=== PATIENT | female | born 1940 | race Caucasian/White ===

== ENCOUNTER 2018-01-18 11:03 | Emergency (ER) | payer MEDICARE, BC ==
[~2018-01-18] VITALS: Wt 85.0 kg
[2018-01-18] MEDS ORDERED: ATORVASTATIN CA20 MG PO (11:15)
[2018-01-18] MEDS ORDERED: FUROSEMIDE40 MG PO (11:15)
[2018-01-18] MEDS ORDERED: LISINOPRIL40 MG PO (11:15)
[2018-01-18] MEDS ORDERED: LEVOTHYROXIN0.088 MG PO (11:15)
[2018-01-18] MEDS ORDERED: DITROPAN 5MG TAB5 MG PO (11:16)
[2018-01-18] MEDS ORDERED: LEADER PAIN RE500 M1 PO (11:16)
[2018-01-18] MEDS ORDERED: GOOD NEIGHBOR P20 M1 PO (11:16)
[2018-01-18] MEDS ORDERED: TYLENOL PM EX-1 EACH PO (11:16)
[2018-01-18] MEDS ORDERED: VITAMIN C PURE500 M1 PO (11:17)
[2018-01-18] MEDS ORDERED: FISH OIL1 IU (11:17)
[2018-01-18] MEDS ORDERED: NATURE'S BOUNTY1 TAB PO (11:17)
[2018-01-18] MEDS ORDERED: CRANBERRY PLUS1 EAC1 PO (11:17)
[2018-01-18] MEDS ORDERED: MULTIVITAMIN1 SGL PO (11:18)
[2018-01-18] MEDS ORDERED: NASACORT A55 MCG/Act (11:23)
[2018-01-18 12:27] LABS: EOS # 0.2 (0.04-0.40); EOS % 1.7 % (1.0-5.0); HEMATOCRIT 45.5 % (37.0-47.0); HEMOGLOBIN 14.4 g/dL (12.5-16.0); LYMPH# 1.8 (1.50-4.00); MEAN CELL VOLUME 92 fl (78-100); MEAN CORPUSCULAR HEMOGLOBIN 29 pg (27-31); MEAN CORPUSCULAR HGB CONC 32 g/dL (33-37); MEAN PLATELET VOLUME 10.8 fl (7.4-10.4); MONO # 0.8 (0.20-0.80); NEU # 6.4 (1.40-6.50); PLATELET COUNT 200 K/mm3 (130-400); RED BLOOD COUNT 4.96 M/mm3 (4.10-5.30); RED CELL DISTRIBUTION WIDTH 13.5 % (11.5-14.5); WHITE BLOOD COUNT 9.2 K/mm3 (4.8-10.8)
[2018-01-18 12:40] LABS: ALBUMIN 4.4 g/dL (3.5-5.0); BUN/CREATININE RATIO 26.5 (6.0-26.0); CALCIUM 9.9 mg/dL (8.4-10.2); TOTAL BILIRUBIN 0.5 mg/dL (0.2-1.3); TOTAL PROTEIN 7.6 g/dL (6.3-8.2)
[2018-01-18 12:41] LABS: CKMB ISOENZYME 3.3 ng/mL (0.6-3.5)
[2018-01-18 12:46] LABS: TROPONIN-I < 0.03 ng/mL (0.00-0.06)
[2018-01-18 12:50] LABS: D-DIMER 0.43 mg/L FEU (0.15-0.50); PARTIAL THROMBOPLASTIN TIME 23.7 SECONDS (21.0-32.0); PROTHROMBIN TIME 9.3 SECONDS (9.0-12.0)
[2018-01-18] MEDS ORDERED: NORVASC2.5 MG PO (13:55)
[2018-01-18 14:27] VITALS: BP 177/81
== END 2018-01-18 14:43 | disposition home or self-care (01) ==
LOC: ED 11:03
PROVIDERS: Physician Assistant
DX: I10 Essential (primary) hypertension (principal); R00.2 Palpitations; E03.9 Hypothyroidism, unspecified; E78.5 Hyperlipidemia, unspecified; M85.80 Other specified disorders of bone density and structure, unspecified site

== ENCOUNTER 2021-11-01 09:05 | Emergency (ER) | payer MEDICARE, BC ==
[~2021-11-01] VITALS: Ht 162.6 cm; Wt 76.4 kg
[~2021-11-01 09:05] MED LIST: ATORVASTATIN CA20 MG PO; CRANBERRY PLUS1 EAC1 PO; DITROPAN 5MG TAB5 MG PO; FISH OIL1 IU; FUROSEMIDE40 MG PO; GOOD NEIGHBOR P20 M1 PO; LEADER PAIN RE500 M1 PO; LEVOTHYROXIN0.088 MG PO; LISINOPRIL40 MG PO; MULTIVITAMIN1 SGL PO; NASACORT A55 MCG/Act; NATURE'S BOUNTY1 TAB PO; NORVASC2.5 MG PO; TYLENOL PM EX-1 EACH PO; VITAMIN C PURE500 M1 PO
[2021-11-01] MEDS ORDERED: AMLODIPINE BESYL5 MG PO (09:42)
[2021-11-01] MEDS ORDERED: DAILY VITAMIN1 EAC3 PO (09:43)
[2021-11-01] MEDS ORDERED: VITAMIN C500 M6 PO (09:44)
[2021-11-01] MEDS ORDERED: FAMOTIDINE20 MG PO (09:45)
[2021-11-01] MEDS ORDERED: CHOLESTYRAMINE PO (09:46)
[2021-11-01] MEDS ORDERED: LISINOPRIL20 MG PO (09:48)
[2021-11-01] MEDS ORDERED: ZYLOPRIM 100MG100 MG PO (09:49)
[2021-11-01] MEDS ORDERED: TOPCARE PAIN R500 MG PO (09:49)
[2021-11-01 10:02] LABS: URINE APPEARANCE CLEAR; URINE BILIRUBIN NEGATIVE (NEGATIVE); URINE BLOOD NEGATIVE (NEGATIVE); URINE COLOR YELLOW; URINE GLUCOSE NEGATIVE (NEGATIVE); URINE KETONE NEGATIVE (NEGATIVE); URINE LEUKOCYTE ESTERASE TRACE (NEGATIVE); URINE NITRATE NEGATIVE (NEGATIVE); URINE PROTEIN(semi-quant) NEGATIVE (NEGATIVE); URINE UROBILINOGEN NORMAL (NORMAL)
[2021-11-01 10:03] LABS: URINE WBC 0-1 /hpf (0-3)
[2021-11-01 10:13] LABS: BASO # 0.03 K/mm3 (0.02-0.10); EOS % 3.2 % (1.0-5.0); HEMATOCRIT 39.5 % (37.0-47.0); HEMOGLOBIN 12.7 g/dL (12.5-16.0); LYMPH# 1.96 K/mm3 (1.50-4.00); MEAN CELL VOLUME 97 fl (78-100); MEAN CORPUSCULAR HEMOGLOBIN 31 pg (27-31); MEAN CORPUSCULAR HGB CONC 32 g/dL (33-37); MEAN PLATELET VOLUME 10.6 fl (7.4-10.4); MONO # 0.58 K/mm3 (0.20-0.80); NEU # 3.56 K/mm3 (1.40-6.50); PLATELET COUNT 200 K/mm3 (130-400); RED BLOOD COUNT 4.09 M/mm3 (4.10-5.30); RED CELL DISTRIBUTION WIDTH 14.3 % (11.5-14.5); WHITE BLOOD COUNT 6.3 K/mm3 (4.8-10.8)
[2021-11-01 10:36] LABS: ALBUMIN 4.5 g/dL (3.4-4.8)
[2021-11-01 10:37] LABS: POTASSIUM 3.6 mmol/L (3.5-5.1)
[2021-11-01 10:38] LABS: CALCIUM 9.6 mg/dL (8.3-10.5)
[2021-11-01 10:41] LABS: TOTAL BILIRUBIN 0.5 mg/dL (0.2-1.2)
[2021-11-01 13:05] VITALS: BP 185/99
== END 2021-11-01 13:20 | disposition home or self-care (01) ==
LOC: ED 09:05
PROVIDERS: Family Medicine
DX: K44.9 Diaphragmatic hernia without obstruction or gangrene (principal); I10 Essential (primary) hypertension; R23.2 Flushing; E78.5 Hyperlipidemia, unspecified; K21.9 Gastro-esophageal reflux disease without esophagitis; M10.9 Gout, unspecified; Z79.899 Other long term (current) drug therapy